=== PATIENT | female | born 1985 | race Caucasian/White ===

== ENCOUNTER 2016-09-24 01:41 | Emergency (ER) | payer OTHER ==
[~2016-09-24] VITALS: Ht 160 cm; Wt 65.8 kg
[~2016-09-24 01:41] MED LIST: CIPROFLOXACIN500 M1 PO; IBUPROFEN 800800 M1 PO; OMEPRAZOLE PO; PEPCID40 MG PO; TUCKS MEDICATE1 EAC1
[2016-09-24 02:28] LABS: URINE BILIRUBIN NEGATIVE (Negative); URINE BLOOD 2+ (Negative); URINE COLOR YELLOW; URINE GLUCOSE-RANDOM* NEGATIVE (Negative); URINE KETONES 3+ (Negative); URINE NITRITE POSITIVE (Negative); URINE PROTEIN (DIPSTICK) TRACE (Negative); URINE SPECIFIC GRAVITY 1.025 (1.003-1.035); URINE UROBILINOGEN 0.2 E.U./dl (0.2-1.0)
[2016-09-24 02:29] LABS: ABSOLUTE NEUTROPHILS 9.9 thou/uL (1.4-8.2); BASOPHILS 0.2 % (0.0-2.0); HEMOGLOBIN 12.6 gm/dL (12.0-15.0); LYMPHOCYTES 9.2 % (24.0-44.0); MCH 30.9 pg (26.0-34.0); MCHC 33.9 g/dL (28.0-37.0); MCV 91.2 fL (80.0-100.0); MONOCYTES 11.5 % (1.0-8.0); PLATELET COUNT 140 thou/uL (150-400); POLYS 79.1 % (36.0-66.0); RBC 4.06 mil/uL (4.20-5.00); RDW 12.4 % (10.5-14.5); WBC 12.6 thou/uL (4.0-11.0)
[2016-09-24 02:30] LABS: MANUAL DIFF NO
[2016-09-24] MEDS ORDERED: MACROBID 100 M100 M1 PO (02:36)
[2016-09-24 02:37] LABS: CALCIUM 8.7 mg/dL (8.5-10.1); CREATININE 0.8 mg/dL (0.6-1.0); POTASSIUM 3.4 mmol/L (3.5-5.1)
[2016-09-24 02:41] LABS: ALBUMIN 3.6 g/dL (3.4-5.0); DIRECT BILIRUBIN 0.1 mg/dL (<0.1-0.3); TOTAL BILIRUBIN 0.7 mg/dL (<0.1-1.0); TOTAL PROTEIN 7.1 g/dL (6.4-8.2)
[2016-09-24 02:48] LABS: SQUAMOUS >10 Many /LPF (0-3); URINE WBC >25 Many /HPF (0-5)
[2016-09-24 02:49] LABS: CASTS None Seen /LPF (None Seen); CRYSTALS None Seen /LPF (None Seen); URINE RBC 3-10 Few /HPF (0-2)
[2016-09-24 03:44] VITALS: BP 125/66
== END 2016-09-24 03:50 | disposition home or self-care (01) ==
LOC: ER 01:41
PROVIDERS: Emergency Medicine
DX: N12 Tubulo-interstitial nephritis, not specified as acute or chronic (principal); N39.0 Urinary tract infection, site not specified; Z91.041 Radiographic dye allergy status; Z88.0 Allergy status to penicillin

== ENCOUNTER 2018-01-19 14:13 | Emergency (ER) | payer OTHER ==
[~2018-01-19] VITALS: Ht 160 cm; Wt 61.2 kg
[~2018-01-19 14:13] MED LIST changes: +MACROBID 100 M100 M1 PO
[2018-01-19] MEDS ORDERED: PREDNISONE 10 M10 M1 PO (14:48)
[2018-01-19 15:08] VITALS: BP 117/74
== END 2018-01-19 15:08 | disposition home or self-care (01) ==
LOC: ER 14:13
DX: L25.9 Unspecified contact dermatitis, unspecified cause (principal); Z88.0 Allergy status to penicillin; Z91.041 Radiographic dye allergy status

== ENCOUNTER 2020-05-15 23:52 | Emergency (ER) | payer OTHER ==
[~2020-05-15] VITALS: Ht 160 cm; Wt 63.5 kg
[~2020-05-15 23:52] MED LIST changes: +PREDNISONE 10 M10 M1 PO
[2020-05-16] MEDS ORDERED: MOBIC15 MG PO (03:14)
[2020-05-16] MEDS ORDERED: HYDROCODON-ACE1 EAC7 PO (03:14)
[2020-05-16 03:39] VITALS: BP 118/61
== END 2020-05-16 03:40 | disposition home or self-care (01) ==
LOC: ER 23:52
DX: S96.912A Strain of unspecified muscle and tendon at ankle and foot level, left foot, initial encounter (principal); Z91.041 Radiographic dye allergy status; Z88.0 Allergy status to penicillin; Y04.0XXA Assault by unarmed brawl or fight, initial encounter; Y93.89 Activity, other specified; Y92.098 Other place in other non-institutional residence as the place of occurrence of the external cause; Y99.8 Other external cause status

== ENCOUNTER 2020-05-30 20:56 | Emergency (ER) | payer OTHER ==
[~2020-05-30] VITALS: Ht 160 cm; Wt 63.5 kg
[~2020-05-30 20:56] MED LIST changes: +HYDROCODON-ACE1 EAC7 PO; +MOBIC15 MG PO
[2020-05-30 21:45] LABS: URINE BILIRUBIN NEGATIVE (Negative); URINE BLOOD TRACE (Negative); URINE CLARITY CLEAR; URINE COLOR YELLOW; URINE GLUCOSE-RANDOM* NEGATIVE (Negative); URINE KETONES NEGATIVE (Negative); URINE NITRITE-REFLEX NEGATIVE (Negative); URINE PROTEIN (DIPSTICK) NEGATIVE (Negative); URINE SPECIFIC GRAVITY <= 1.005 (1.005-1.035); URINE UROBILINOGEN 0.2 E.U./dl (0.2-1.0)
[2020-05-30 21:53] LABS: URINE LEUKOCYTES-REFLEX 1+ (Negative)
[2020-05-30 22:02] LABS: BACTERIA-REFLEX 1-9 Few /HPF (None Seen); CASTS None Seen /LPF (None Seen); CRYSTALS None Seen /LPF (None Seen); MUCUS 0-3 Light strn/LPF (None Seen); SQUAMOUS 0-3 Few /LPF (0-3); URINE RBC 0-2 Rare /HPF (0-2); URINE WBC-REFLEX 6-15 Few /HPF (0-5)
[2020-05-30] MEDS ORDERED: BACTRIM DS TAB1 EACH PO (22:18)
[2020-05-30] MEDS ORDERED: FLAGYL500 M1 PO (22:18)
[2020-05-30 23:00] VITALS: BP 122/76
[2020-06-03 21:05] LABS: SYPHILIS AB Reactive (Non Reactive)
== END 2020-05-30 23:00 | disposition home or self-care (01) ==
LOC: ER 20:56
PROVIDERS: Nurse Practitioner
DX: R30.0 Dysuria (principal); N39.0 Urinary tract infection, site not specified; Z20.2 Contact with and (suspected) exposure to infections with a predominantly sexual mode of transmission; Z79.899 Other long term (current) drug therapy; Z88.0 Allergy status to penicillin; Z88.8 Allergy status to other drugs, medicaments and biological substances